=== PATIENT | female | born 1995 | race Caucasian/White ===

== ENCOUNTER 2020-01-16 08:50 | Emergency (ER) | payer OTHER ==
[~2020-01-16] VITALS: Ht 172.7 cm; Wt 104.5 kg
[~2020-01-16 08:50] MED LIST: IBU800 M1 PO; PERCOCET 325 MG1 TA2 PO; PRENATAL
[2020-01-16 09:05] VITALS: TEMP 98.9
[2020-01-16] MEDS ORDERED: NORCO 325 MG-51 TAB PO (10:24)
[2020-01-16] MEDS ORDERED: CRUTCHES MC (10:25)
[2020-01-16 11:34] VITALS: BP 123/72; PULSE 74
== END 2020-01-16 11:50 | disposition home or self-care (01) ==
LOC: COL.ER 08:50
DX: S92.354A Nondisplaced fracture of fifth metatarsal bone, right foot, initial encounter for closed fracture (principal); X50.1XXA Overexertion from prolonged static or awkward postures, initial encounter; Y92.009 Unspecified place in unspecified non-institutional (private) residence as the place of occurrence of the external cause
CPT/HCPCS: Q4045